=== PATIENT | female | born 1975 | race Caucasian/White ===

== ENCOUNTER 2016-12-22 19:40 | Emergency (ER) | payer OTHER ==
[~2016-12-22] VITALS: Ht 165.1 cm; Wt 62.1 kg
[2016-12-22] MEDS ORDERED: TRI-LO-ESTARYL1 EACH PO (20:27)
[2016-12-22] MEDS ORDERED: VALACYCLOVIR1 GM PO (20:29)
[2016-12-22 20:32] LABS: EOS # 0.1 (0.04-0.40); EOS % 0.8 % (1.0-5.0); HEMATOCRIT 39.4 % (37.0-47.0); HEMOGLOBIN 13.1 g/dL (12.5-16.0); LYMPH# 1.5 (1.50-4.00); MEAN CELL VOLUME 86 fl (78-100); MEAN CORPUSCULAR HEMOGLOBIN 29 pg (27-31); MEAN CORPUSCULAR HGB CONC 33 g/dL (33-37); MEAN PLATELET VOLUME 10.5 fl (7.4-10.4); MONO # 0.7 (0.20-0.80); NEU # 5.5 (1.40-6.50); PLATELET COUNT 273 K/mm3 (130-400); RED CELL DISTRIBUTION WIDTH 13.6 % (11.5-14.5); WHITE BLOOD COUNT 7.9 K/mm3 (4.8-10.8)
[2016-12-22 20:41] LABS: ALBUMIN 4.1 g/dL (3.5-5.0); BUN/CREATININE RATIO 7.9 (6.0-26.0); CALCIUM 9.5 mg/dL (8.4-10.2); POTASSIUM 3.8 mmol/L (3.6-5.0); TOTAL BILIRUBIN 0.7 mg/dL (0.2-1.3); TOTAL PROTEIN 7.7 g/dL (6.3-8.2)
[2016-12-22] MEDS ORDERED: PRILOSEC 20MG20 MG PO (21:14)
[2016-12-22] MEDS ORDERED: VALTREX1 GM PO (21:14)
[2016-12-22] MEDS ORDERED: MAGIC MOUTHWASH1 M1 PO (21:14)
[2016-12-22 21:34] VITALS: BP 130/87
== END 2016-12-22 21:34 | disposition home or self-care (01) ==
LOC: ED 19:40
PROVIDERS: Physician Assistant
DX: B00.1 Herpesviral vesicular dermatitis (principal); B00.2 Herpesviral gingivostomatitis and pharyngotonsillitis; K05.10 Chronic gingivitis, plaque induced; K29.70 Gastritis, unspecified, without bleeding; E86.0 Dehydration
CPT/HCPCS: J7030

== ENCOUNTER 2020-04-16 07:56 | Outpatient (RCR) | payer BC ==
[~2020-04-16 07:56] MED LIST: MAGIC MOUTHWASH1 M1 PO; PRILOSEC 20MG20 MG PO; TRI-LO-ESTARYL1 EACH PO; VALACYCLOVIR1 GM PO; VALTREX1 GM PO
== END 2020-07-15 | disposition home or self-care (01) ==
LOC: PT
DX: M77.01 Medial epicondylitis, right elbow (principal)

== ENCOUNTER 2020-04-28 22:51 | Emergency (ER) | payer BC ==
[2020-04-28 23:22] LABS: EOS # 0.3 (0.04-0.40); EOS % 4.7 % (1.0-5.0); HEMATOCRIT 39.1 % (37.0-47.0); HEMOGLOBIN 13.1 g/dL (12.5-16.0); LYMPH# 1.8 (1.50-4.00); MEAN CELL VOLUME 88 fl (78-100); MEAN CORPUSCULAR HEMOGLOBIN 29 pg (27-31); MEAN CORPUSCULAR HGB CONC 34 g/dL (33-37); MEAN PLATELET VOLUME 9.8 fl (7.4-10.4); MONO # 0.4 (0.20-0.80); PLATELET COUNT 260 K/mm3 (130-400); RED BLOOD COUNT 4.45 M/mm3 (4.10-5.30); RED CELL DISTRIBUTION WIDTH 13.3 % (11.5-14.5); WHITE BLOOD COUNT 6.6 K/mm3 (4.8-10.8)
[2020-04-28 23:35] LABS: POTASSIUM 3.4 mmol/L (3.5-5.1)
[2020-04-28 23:36] LABS: CALCIUM 8.6 mg/dL (8.3-10.5)
[2020-04-28 23:37] LABS: TOTAL PROTEIN 6.9 g/dL (6.4-8.3)
[2020-04-28 23:39] LABS: TOTAL BILIRUBIN 0.4 mg/dL (0.2-1.2)
[2020-04-29 00:01] LABS: URINE APPEARANCE HAZY; URINE BILIRUBIN NEGATIVE (NEGATIVE); URINE BLOOD NEGATIVE (NEGATIVE); URINE COLOR YELLOW; URINE GLUCOSE NEGATIVE (NEGATIVE); URINE KETONE NEGATIVE (NEGATIVE); URINE LEUKOCYTE ESTERASE NEGATIVE (NEGATIVE); URINE NITRATE NEGATIVE (NEGATIVE); URINE PROTEIN(semi-quant) NEGATIVE (NEGATIVE); URINE UROBILINOGEN NORMAL (NORMAL)
[2020-04-29 00:02] LABS: URINE WBC 0-1 /hpf (0-3)
[2020-04-29 00:09] VITALS: BP 113/75
== END 2020-04-29 00:10 | disposition home or self-care (01) ==
LOC: ED 22:51
PROVIDERS: Nurse Practitioner
DX: K30 Functional dyspepsia (principal)